=== PATIENT | female | born 1995 | race African-American/Black ===

== ENCOUNTER 2021-07-11 07:35 | Emergency (ER) | payer MEDICAID ==
[~2021-07-11] VITALS: Ht 167.6 cm; Wt 73.0 kg
[2021-07-11 07:40] VITALS: BP 128/90
[2021-07-11] MEDS ORDERED: FOLIC ACID 1 MG, THIAMINE HCL 100 MG, MVI, ADULT NO.1 10 ML in DEXTROSE 5% WATER 1,000 ML IV ONE (07:45)
== END 2021-07-11 08:05 | disposition left against medical advice (07) ==
LOC: ER 07:54
DX: F10.129 Alcohol abuse with intoxication, unspecified (principal); Y90.9 Presence of alcohol in blood, level not specified
CPT/HCPCS: 99283; J3411; J3490; J7070